=== PATIENT | female | born 1970 | race Caucasian/White ===

== ENCOUNTER 2019-09-30 00:25 | Outpatient (CLI) | payer BC, SELFPAY ==
[2019-09-30 18:52] LABS: SARS-CoV-2 RNA PCR Negative
== END 2019-09-30 00:26 | disposition home or self-care (01) ==
LOC: ANHCOVIDDT 00:26
PROVIDERS: Visit Provider Obstetrics & Gynecology
DX: Z01.812 Encounter for preprocedural laboratory examination (principal); Z11.59 Encounter for screening for other viral diseases
CPT/HCPCS: 87635; C9803; U0003

== ENCOUNTER 2019-09-30 08:12 | Outpatient (CLI) | payer BC, SELFPAY ==
[2019-09-30 08:32] LABS: Hematocrit 47.2 % (37.0-47.0); Hemoglobin 14.9 g/dL (12.0-15.0); Mean Corpuscular HGB Conc 31.6 g/dl (32-36); Mean Corpuscular Volume 82.5 fl (80-100); Mean Platelet Volume 10.4 fl (7.4-10.4); Platelet Count Result 211 k/mm3 (150-375); Red Blood Count 5.72 M/mm3 (4.2-5.4); Red Cell Distribution Width 15.9 % (11.5-14.5)
[2019-09-30 08:50] LABS: Anion Gap 9.4 mmol/L (7-16); Blood Urea Nitrogen 13 mg/dL (7-17); Carbon Dioxide 31 mmol/L (22-30); Chloride 102 mmol/L (98-107); Estimated Glomerular Filt Rate > 60; Glucose 99 mg/dL (65-105); Potassium 4.4 mmol/L (3.4-5.0); Sodium 138 mmol/L (137-145)
== END 2019-09-30 08:13 | disposition home or self-care (01) ==
PROVIDERS: Anesthesiology; Visit Provider Obstetrics & Gynecology
DX: I10 Essential (primary) hypertension (principal); N93.9 Abnormal uterine and vaginal bleeding, unspecified
CPT/HCPCS: 36415; 80048; 85027

== ENCOUNTER 2019-10-02 00:26 | Day surgery (SDC) | payer BC, SELFPAY ==
[2019-09-18 15:39] VITALS: BMI 48.0
--- NOTE | 2019-10-02 06:55 | P.PNAN_ITS ---
Anes - Initial Pre Proc Eval Procedure: Operation Date: 10/02/19 08:15 Proposed Procedures p Hysteroscopy, Dilation and Curettage, Ethel Endometrial Ablation, Possible Insertion Of Intrauterine Device - Laine España MD Date/Time: 10/02/19 06:55 Surgeon: Laine España MD Pre Op Diagnosis: Abnormal Uterine Bleeding Patient Data Age: 49 Gender: F Height: 5 ft 4 in Weight: 127.01 kg Allergies Allergy/AdvReac Type Severity Reaction Status Date / Time No Known Allergies Allergy Verified 09/18/19 15:31 Home Medications Medication Instructions Recorded Confirmed Type amlodipine 5 mg PO QPM 09/18/19 09/18/19 History ascorbic acid (vitamin C) [Vitamin 1 g PO BID 09/18/19 09/18/19 History C] calcium carbonate [Calcium 600] 600 mg PO BID 09/18/19 09/18/19 History cholecalciferol (vitamin D3) 125 mcg PO BID 09/18/19 09/18/19 History [Vitamin D3] ferrous sulfate [iron] 325 mg PO QPM 09/18/19 09/18/19 History glucos sul [id number] 1 cap PO BID 09/18/19 09/18/19 History [Glucosamine Chondroitin] hydrochlorothiazide 12.5 mg PO DAILY 09/18/19 09/18/19 History leuprolide [Lupron Depot] 3.75 mg IM MONTHLY 09/18/19 09/18/19 History magnesium 500 mg PO BID 09/18/19 09/18/19 History omeprazole 40 mg PO DAILY 09/18/19 09/18/19 History Patient hx anesthesia problems: post op nausea/vomiting Family hx anesthesia problems: none PMFSH Past Medical History Medical History (Updated 10/02/19 @ 06:55 by Rylan Lancaster MD) GERD (gastroesophageal reflux disease) HTN (hypertension) Morbid obesity Surgical History Surgical History (Updated 10/02/19 @ 06:55 by Rylan Lancaster MD) Status post breast reduction Status post lumbar surgery Social History Social History Smoking status: Never smoker Spiritual care concerns: No Anes - Eval Final PreProcedure Day of Procedure 10/02/19 06:55 Patient weight: morbidly obese Heart: regular rate and rhythm Lungs: clear to auscultation Airway: Mallampati scale class 1 Neurological: alert and oriented Last oral intake: >/= 8 hours ASA classification: III Emergent: no Anesthetic plan: proceed Anesthesia type and monitoring: general GIVS and standard monitoring Informed Consent: The patient's anesthetic plan and its attendant risks and benefits were discussed with the patient/family/POA. Questions were solicited an d answers provided to the satisfaction of the patient/family/POA.
[2019-10-02] MEDS: LACTATED RINGERS 1,000 ML 30 ML IV CONT (07:00)
[2019-10-02] MEDS: ACETAMINOPHEN 500 MG TABLET 1000 MG PO (07:01)
--- NOTE | 2019-10-02 07:29 | WPDHPUPDATE1 ---
History and Physical Update Update Date/Time: 10/02/19 07:29 History and Physical has been reviewed, including an updated exam of the patient. There are NO changes in the patient's condition. Risks, benefits, and alternatives have been discussed and questions answered. Patient agrees to proceed with procedure.
--- NOTE | 2019-10-02 07:40 | PM.IMHP ---
H&P: HPI History of Present Illness Date/Time: 10/02/19 07:40 Chief complaint: Abnormal Uterine Bleeding Narrative: Jimena Calle is a 49 year old female after 6 mo of LUPRON. She had AUB with significant anemia and failed a NOVASURE ablation due to seal issue at cervix and enlarged cavity. She is not a good hysterectomy candidate. Howeverm we wanted to trial lupron 6 mo to shrink the uterus and try an ablation again. Since starting lupron her periods have stopped but will return when treatment is discontinued. Therefore we have decided to move forward with hysteroscopy D&C with endometrial ablation and possible IUD insertion with MIRENA Review of Systems Review of Systems: All systems reviewed & are unremarkable except as noted in HPI and below Constitutional: Constitutional: Reports as per HPI and Reports no additional constitutional complaints Eyes: Eyes: Reports as per HPI and Reports no additional eye complaints ENT: Reports system reviewed and no additional complaints, except as documented and Reports as per HPI Cardiovascular: Cardiovascular: Reports as per HPI and Reports no additional cardiovascular complaints Respiratory: Respiratory: Reports no additional respiratory complaints Gastrointestinal: Gastrointestinal: Reports no additional gastrointestinal complaints Genitourinary: Genitourinary: Reports no additional female genitourinary complaints and Reports as per HPI Musculoskeletal: Musculoskeletal: Reports no additional musculoskeletal complaints Integumentary/Breasts: Skin/Breast: Reports system reviewed and no additional complaints, except as docu Neurologic: Reports system reviewed and no additional complaints, except as documented Psychiatric: Psychiatric: Reports no additional psychiatric complaints [facility] Past Medical History Medical History GERD (gastroesophageal reflux disease) HTN (hypertension) Morbid obesity Surgical History Surgical History Status post breast reduction Status post lumbar surgery Social History Social History Smoking status: Never smoker Spiritual care concerns: No Meds Home Medications and Allergies Home Medications Medication Instructions Recorded Confirmed Type amlodipine 5 mg PO QPM 09/18/19 09/18/19 History ascorbic acid (vitamin C) [Vitamin 1 g PO BID 09/18/19 09/18/19 History C] calcium carbonate [Calcium 600] 600 mg PO BID 09/18/19 09/18/19 History cholecalciferol (vitamin D3) 125 mcg PO BID 09/18/19 09/18/19 History [Vitamin D3] ferrous sulfate [iron] 325 mg PO QPM 09/18/19 09/18/19 [address] glucos sul [id number]-Mn 1 cap PO BID 09/18/19 09/18/19 History [Glucosamine Chondroitin] hydrochlorothiazide 12.5 mg PO DAILY 09/18/19 09/18/19 History leuprolide [Lupron Depot] 3.75 mg IM MONTHLY 09/18/19 09/18/19 History magnesium 500 mg PO BID 09/18/19 09/18/19 History omeprazole 40 mg PO DAILY 09/18/19 09/18/19 History Allergies Allergy/AdvReac Type Severity Reaction Status Date / Time No Known Allergies Allergy Verified 09/18/19 15:31 Exam Const: General: no acute distress HENMT: Ears: TM's normal bilaterally Eyes: General: appearance normal, both eyes and all related structures Neck: Neck: no JVD Resp: Auscultation: clear to auscultation bilaterally Cardio: Rate: regular rate Rhythm: regular rhythm : External Female Exam: normal external appearance Skin: General skin exam: normal color and no rashes or lesions noted Neuro: General: gait normal Speech: normal speech Extrem: General: normal to inspection Right upper extremity: normal to inspection Left upper extremity: normal to inspection Right lower extremity: normal to inspection Left lower extremity: normal to inspection Psych: Mental Status: mental status grossly normal
[2019-10-02 09:41] VITALS: BP 123/78; PULSE 80; RESP 18; TEMP 36.3; O2SAT 100
--- NOTE | 2019-10-02 10:52 | SUR.OPER ---
EBL:50cc
--- NOTE | 2019-10-02 10:59 | PM.PROC ---
Procedure Note - Detailed Date of procedure: 10/02/19 Pre-op diagnosis: Abnormal Uterine Bleeding Post-op diagnosis: same Procedure performed: hysteroscopy D&C, MYOSURE myomectomy, failed endometrial ablation, Insertion of intrauterine device Description of procedure: Mac was found to b e adequate SHe was then prepared and draped in dorsal lithotomy position in [facility]. A speculum used to visualize the cervix and a single toothed tenaculum placed on the anterior lip. A hysteroscope was inserted and the cavity was visualized. There was a very large intrauterine mass noted which I was able to travel around and visualize each cornua. It was attached to the left side wall of the uterine. THe myosure was then passed and spent approximately 1 hr utilizing this device to resect the mass. There was a small portion of it left and I tried to grasp with polyp forceps. The Ethel device was then prepared and inserted. The balloon failed to inflate and error code 001 noted. The rep called and a second device attempted, and simlarly error code 001 was given (which means remove device and replace). So the hysteroscope was again inserted and began to complete resection of the fibroid for another 30 min until deficit read 1500cc (though at end of case large amount was on floor and absorbed into a blanket on the floor.). A MIRENA IUD was then prepared and inserted into the cavity and string left long as she has a very large cavity. Uterine sounded to 18cm, cervix was 8cm so cavity length was 10cm. The procedure at this point was complete. the Tenaculums removed and there was no active bleeding. All sponge lap and needle counts were correct Anesthesia: GLMA Surgeon: Laine España MD Estimated blood loss (mL): 50 Drains: No Packing: No Pathology: yes (intrauterine shavings of intracavitary mass) Complications: No immediate complications Condition: stable Disposition: same day Findings: Large rounded vascular mass in the uterine cavity.
[2019-10-02 11:05] VITALS: BP 114/66; PULSE 98; RESP 16; TEMP 36.3; O2SAT 98
[2019-10-02 11:35] VITALS: BP 113/65; PULSE 87; RESP 17
[2019-10-02 12:05] VITALS: BP 106/66; PULSE 71; RESP 16
== END 2019-10-02 13:11 | disposition home or self-care (01) ==
PROVIDERS: Visit Provider Obstetrics & Gynecology
PROC: 0U5B8ZZ Destruction of Endometrium, Via Natural or Artificial Opening Endoscopic (ICD-10-PCS; CPT 58563; principal; 2019-10-02 08:15)
DX: N93.9 Abnormal uterine and vaginal bleeding, unspecified (principal); D25.0 Submucous leiomyoma of uterus; I10 Essential (primary) hypertension; K21.9 Gastro-esophageal reflux disease without esophagitis; E66.01 Morbid (severe) obesity due to excess calories; Z68.42 Body mass index [BMI] 45.0-49.9, adult
CPT/HCPCS: 58561; 58300; 88305; A9270; J2250; J2704; J3010; J7030; J7120